=== PATIENT | female | born 1970 | race American Indian/Alaskan Native ===

== ENCOUNTER 2020-05-14 02:10 | Emergency (ER) | payer SELFPAY ==
[2020-05-14] MEDS ORDERED: ACETAMINOPHEN 500 MG TAB PO ONE (02:43)
[2020-05-14 02:45] VITALS: BP 119/86
--- NOTE | 2020-05-14 03:23 | XRay Report ---
RIGHT ELBOW 3 VIEWS INDICATION / CLINICAL INFORMATION: fall - pain. COMPARISON: None available. FINDINGS: BONES/JOINT(S): No acute fracture or subluxation. 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 SOFT TISSUES: No significant abnormality. ADDITIONAL FINDINGS: None. Signer Name: Andrew Merlos MD Signed: 05/14/2020 3:18 AM Workstation Name: [id number]
--- NOTE | 2020-05-14 03:27 | XRay Report ---
RIGHT HUMERUS 2 VIEWS INDICATION / CLINICAL INFORMATION: FALL - PAIN. COMPARISON: None available. FINDINGS: BONES/JOINT(S): No acute fracture or subluxation. No significant degenerative changes. SOFT TISSUES: No significant abnormality. ADDITIONAL FINDINGS: None. Signer Name: Andrew Merlos MD Signed: 05/14/2020 3:23 AM Workstation Name: [id number]
--- NOTE | 2020-05-14 03:58 | Emergency Department Report ---
ED Upper Extremity Inj HPI - General Chief Complaint: Extremity Injury, Upper Stated Complaint: FELL ON RIGHT ARM Source: patient Mode of arrival: Ambulatory Limitations: Physical Limitation - History of Present Illness Initial Comments: Patient is a 50-year-old -[place] Citizen female with a history of anxiety and depression who presents to the ED with complaint of acute onset persistent severe right upper arm pain, severe right elbow pain after she lost balance in the house when skating on her living room floor, and fell on the floor landing on the right arm about 4 hours ago. Patient states that she took ibuprofen 3 hours prior to arrival in the ED for pain with no relief. Patient states that the pain is worse with any active range of motion of the right arm. Patient denies head or neck injuries, seizures, syncope, chest pain or shortness of breath, back pain, nausea and vomiting, change in vision, loss of consciousness, numbness and tingling or weakness of right arm or vision changes and back pain. MD Complaint: Injury to:: right, arm, elbow, forearm -: Sudden, hour(s) (4) Other Extremity Injury: Elbow: Right (pain), Arm: Right (pain) Other Injuries: none Handedness: right Place: home Severity scale (0 -10): 9 Improves With: rest Worsens With: movement of extremity Context: fall, injury Associated Symptoms: denies other symptoms. denies: weakness, numbness, neck pain, suspects foreign body, nausea/vomiting, heard/felt popping sensat - Related Data Previous Rx's Medication Instructions Recorded Last Taken Type Acetaminophen [Tylenol] 500 mg PO Q6HR PRN #30 tablet 05/14/20 Unknown Rx Ibuprofen [Motrin] 800 mg PO Q8HR PRN #30 tablet 05/14/20 Unknown Rx Allergies Allergy/AdvReac Type Severity Reaction Status Date / Time hydromorphone [From Dilaudid] Allergy Dizziness Verified 05/14/20 02:46 ED Review of Systems ROS: Stated complaint: FELL ON RIGHT ARM Other details as noted in HPI Constitutional: denies: chills, fever Eyes: denies: eye pain, eye discharge, vision change ENT: denies: ear pain, throat pain Respiratory: denies: cough, shortness of breath, wheezing Cardiovascular: denies: chest pain, palpitations Endocrine: no symptoms reported Gastrointestinal: denies: abdominal pain, nausea, diarrhea Genitourinary: denies: urgency, dysuria, discharge Musculoskeletal: arthralgia (right upper arm, elbow pain). denies: back pain, joint swelling Skin: denies: rash, lesions Neurological: denies: headache, weakness, paresthesias Psychiatric: denies: anxiety, depression Hematological/Lymphatic: denies: easy bleeding, easy bruising ED Past Medical Hx - Past Medical History Hx Psychiatric Treatment: Yes (Anxiety and depression) - Social History Smoking Status: Never Smoker Substance Use Type: None - Medications Home Medications: Home Medications Medication Instructions Recorded Confirmed Last Taken Type Acetaminophen [Tylenol] 500 mg PO Q6HR PRN #30 tablet 05/14/20 Unknown Rx Ibuprofen [Motrin] 800 mg PO Q8HR PRN #30 tablet 05/14/20 Unknown Rx ED Physical Exam - General Limitations: Physical Limitation General appearance: alert, in no apparent distress - Head Head exam: Present: atraumatic, normocephalic, normal inspection - Eye Eye exam: Present: normal appearance, PERRL, EOMI Pupils: Present: normal accommodation - ENT ENT exam: Present: normal exam, normal orophraynx, mucous membranes moist, TM's normal bilaterally, normal external ear exam - Neck Neck exam: Present: normal inspection, full ROM. Absent: tenderness, lymphadenopathy - Respiratory Respiratory exam: Present: normal lung sounds bilaterally. Absent: respiratory distress, wheezes, rhonchi, stridor, chest wall tenderness - Cardiovascular Cardiovascular Exam: Present: regular rate, normal rhythm, normal heart sounds. Absent: systolic murmur, diastolic murmur, rubs, gallop - GI/Abdominal GI/Abdominal exam: Present: soft, normal bowel sounds. Absent: tenderness, guarding, rebound, hyperactive bowel sounds, organomegaly - Extremities Exam Extremities exam: Present: normal inspection, tenderness (Palpable severe right elbow and right upper arm tenderness with limited range of motion due to pain), normal capillary refill. Absent: full ROM (Limited range of motion right arm due to pain in the right elbow) - Back Exam Back exam: Present: normal inspection, full ROM. Absent: tenderness, CVA tenderness (R), muscle spasm, paraspinal tenderness - Neurological Exam Neurological exam: Present: alert, oriented X3, CN II-XII intact, normal gait, reflexes normal - Psychiatric Psychiatric exam: Present: normal affect, normal mood - Skin Skin exam: Present: warm, dry, intact, normal color. Absent: rash ED Course Vital Signs 05/14/20 02:43 Temperature 98.6 F Pulse Rate 80 Blood Pressure 119/86 ED Medical Decision Making - Radiology Data Radiology results: report reviewed, image reviewed Findings [address] [address] XRay Report Signed Patient: JORDAN OCAMPO MR# : [id number] : 1970 Acct:[id number] Age/Sex: 50 / F ADM Date: 05/14/20 Loc: ED Attending Dr: Ordering Physician: LIVIA CRUZ Date of Service: 05/14/20 Procedure(s): XR humerus 2+V RT Accession Number(s): [id number] cc: LIVIA CRUZ Fluoro Time In Minutes: RIGHT HUMERUS 2 VIEWS INDICATION / CLINICAL INFORMATION: FALL - PAIN. COMPARISON: None available. FINDINGS: BONES/JOINT(S): No acute fracture or subluxation. No significant degenerative changes. SOFT TISSUES: No significant abnormality. ADDITIONAL FINDINGS: None. Signer Name: Andrew Merlos MD Signed: 05/14/2020 3:23 AM Workstation Name: [id number] Transcribed By: COLT Dictated By: Andrew Merlos MD Electronically Authenticated By: Andrew Merlos MD Signed Date/Time: 05/14/20322 DD/ 1 TD/TT: ' Findings [address] [address] XRay Report Signed Patient: JORDAN OCAMPO MR# : [id number] : 1970 Acct:[id number] Age/Sex: 50 / F ADM Date: 05/14/20 Loc: ED Attending Dr: Ordering Physician: LIVIA CRUZ Date of Service: 05/14/20 Procedure(s): XR elbow 3+V RT Accession Number(s): [id number] cc: LIVIA CRUZ Fluoro Time In Minutes: RIGHT ELBOW 3 VIEWS INDICATION / CLINICAL INFORMATION: fall - pain. COMPARISON: None available. FINDINGS: BONES/JOINT(S): No acute fracture or subluxation. 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 SOFT TISSUES: No significant abnormality. ADDITIONAL FINDINGS: None. Signer Name: Andrew Merlos MD Signed: 05/14/2020 3:18 AM Workstation Name: [id number] Transcribed By: COLT Dictated By: Andrew Merlos MD Electronically Authenticated By: Andrew Merlos MD Signed Date/Time: 05/14/20317 DD/ 7 TD/TT: - Medical Decision Making This is a 50-year-old -[place] Citizen female with a history of anxiety and depression who presents to the ED with complaint of acute onset persistent severe right upper arm pain, severe right elbow pain after she lost balance in the house when skating on her living room floor, and fell on the floor landing on the right arm about 4 hours ago. Patient states that she took ibuprofen 3 hours prior to arrival in the ED for pain with no relief. Patient states that the pain is worse with any active range of motion of the right arm. In the ED, patient is alert and oriented x3 and is not in distress but is in significant pain, crying during the physical exam. Patient was treated for pain in the ED with Tylenol. Right elbow x-ray shows no acute fractures or subluxations. Right humerus x-ray also showed no acute fractures or subluxations. On reevaluation, patient's pain is well controlled medications. Patient applied her on sling that she had brought with her to immobilize the right arm while in the ED. Patient was therefore discharged home on pain medications and advised to follow-up with her primary care physician in 7 to 10 days for reevaluation. Patient advised return to the ED immediately if symptoms get worse. - Differential Diagnosis Elbow fracture; humerus fracture; contusion; muscle strain; elbow sprain Critical care attestation.: If time is entered above; I have spent that time in minutes in the direct care of this critically ill patient, excluding procedure time. ED Disposition Clinical Impression: Sprain of right elbow Qualifiers: Encounter type: initial encounter Qualified Code(s): S53.401A - Unspecified sprain of right elbow, initial encounter Contusion of right upper arm Qualifiers: Encounter type: initial encounter Qualified Code(s): S40.021A - Contusion of right upper arm, initial encounter Disposition: TO HOME OR SELFCARE Is pt being admited?: No Does the pt Need Aspirin: No Condition: Stable Instructions: Contusion, [id number], Elbow Sprain Additional Instructions: The x-rays of your right upper arm and elbow showed no acute fractures or subluxations. Your injuries are likely due to musculoskeletal injury or muscle strain of your right arm. Therefore take medications with food, drink plenty of fluids and follow-up with your primary care physician in 5 to 7 days for reevaluation. Return to the ED immediately if symptoms get worse. Prescriptions: Acetaminophen [Tylenol] 500 mg PO Q6HR PRN #30 tablet PRN Reason: Pain , Severe (7-10) Ibuprofen [Motrin] 800 mg PO Q8HR PRN #30 tablet PRN Reason: Pain , Severe (7-10) Referrals: [facility] [Provider Group] - 3-5 Days Time of Disposition: 04:01 Print Language: M[place]OCC[place]
== END 2020-05-14 04:38 | disposition home or self-care (01) ==
LOC: ED 02:10
DX: S53.401A Unspecified sprain of right elbow, initial encounter (principal); S40.012A Contusion of left shoulder, initial encounter; F41.9 Anxiety disorder, unspecified; F32.9 Major depressive disorder, single episode, unspecified; Z79.899 Other long term (current) drug therapy; Z88.8 Allergy status to other drugs, medicaments and biological substances; W18.30XA Fall on same level, unspecified, initial encounter; Y93.89 Activity, other specified; Y92.89 Other specified places as the place of occurrence of the external cause; Y99.8 Other external cause status
CPT/HCPCS: 99283